=== PATIENT | male | born 1965 | race African-American/Black ===

== ENCOUNTER → 2023-11-28 | Outpatient (CLI) | payer OTHER | LOC: M RAD 11:25 | PROVIDERS: ATTEND Chiropractor | DX: S33.5XXA Sprain of ligaments of lumbar spine, initial encounter (principal); M99.03 Segmental and somatic dysfunction of lumbar region; M51.34 Other intervertebral disc degeneration, thoracic region; M99.02 Segmental and somatic dysfunction of thoracic region; X58.XXXA Exposure to other specified factors, initial encounter; Y92.9 Unspecified place or not applicable; Y93.9 Activity, unspecified; Y99.9 Unspecified external cause status; M41.9 Scoliosis, unspecified ==

== ENCOUNTER → 2023-12-01 | Outpatient (CLI) | payer OTHER | LOC: M PLAIMG 09:39 → EDUNIT# 10:00 | PROVIDERS: ATTEND Physician Assistant Medical | DX: M25.511 Pain in right shoulder (principal); M19.011 Primary osteoarthritis, right shoulder; M77.8 Other enthesopathies, not elsewhere classified ==

== ENCOUNTER → 2024-03-27 | Outpatient (REF) | LOC: M PLAIMG 15:22 | PROVIDERS: ATTEND Internal Medicine | DX: R52 Pain, unspecified (principal); M51.360 Other intervertebral disc degeneration, lumbar region with discogenic back pain only; M25.78 Osteophyte, vertebrae; M47.812 Spondylosis without myelopathy or radiculopathy, cervical region ==

== ENCOUNTER 2024-11-05 18:49 | Emergency (ER) | payer OTHER ==
[~2024-11-05] VITALS: Ht 172.7 cm; Wt 86.4 kg
[2024-11-05] MEDS: ASPIRIN 81 MG CHEWABLE TABLET PO ONE (20:16)
[2024-11-05 20:27] LABS: BASO # 0.0 10^3/uL (0.0-0.2); BASO % 0.7 % (0.0-1.0); EOS # 0.2 10^3/uL (0.0-0.5); EOS % 3.1 % (0.0-3.0); LYMPH # 1.4 10^3/uL (1.5-5.0); LYMPH % 24.9 % (24.0-44.0); MONO # 0.7 10^3/uL (0.0-0.8); MONO % 13.1 % (2.0-8.0); NEUTROPHILS # 3.2 10^3/uL (1.5-8.5); NEUTROPHILS % 58.0 % (36.0-66.0); PLATELET COUNT, AUTOMATED 172 10^3/uL (150-450)
[2024-11-05 20:57] LABS: CK-MB VALUE MASS 2.8 NG/ML (<3.6)
[2024-11-05 20:59] LABS: ALT/SGPT 32.0 U/L (7.0-40); AST/SGOT 23.0 U/L (<34); CALCIUM LEVEL 9.4 MG/DL (8.5-10.1); CARBON DIOXIDE LEVEL 30.0 MMOL/L (20-31); CHLORIDE LEVEL 107.0 MMOL/L (98-107); CREATININE FOR GFR 1.44 MG/DL (0.70-1.30); GLOMERULAR FILTRATION RATE 56.7 (>56); POTASSIUM SERUM 3.8 MMOL/L (3.5-5.1); SODIUM LEVEL 142.0 MMOL/L (136-145)
[2024-11-05 21:06] LABS: CPK CREATINE PHOSPHOKINASE 265.0 U/L (46-171); MB/CK RELATIVE INDEX 1.05 (< OR =4)
[2024-11-05 21:11] LABS: INR 0.93
[2024-11-05] MEDS ORDERED: ISOVUE-370 76% 100 ML VIAL As Ordered ONE (21:21)
[2024-11-05 21:51] LABS: CK-MB VALUE MASS 2.4 NG/ML (<3.6)
[2024-11-05 21:54] LABS: CPK CREATINE PHOSPHOKINASE 264 U/L (46-171); MB/CK RELATIVE INDEX 0.90 (< OR =4)
[2024-11-05 23:45] VITALS: BP 134/92; TEMP 96.9; O2SAT 98
== END 2024-11-05 23:50 | disposition home or self-care (01) ==
LOC: M ED 18:49
DX: R07.9 Chest pain, unspecified (principal); D18.03 Hemangioma of intra-abdominal structures; F17.200 Nicotine dependence, unspecified, uncomplicated; M50.30 Other cervical disc degeneration, unspecified cervical region
CPT/HCPCS: 36415; 71275; 80048; 80076; 82550; 82553; 83690; 84484; 85025; 85610; 85730; 93005; 93041; 93971; 94760; 99285; Q9967

== ENCOUNTER → 2025-01-01 | Outpatient (REF) | LOC: M LAB 10:13 | PROVIDERS: ATTEND Family Medicine | DX: Z01.89 Encounter for other specified special examinations (principal) ==